=== PATIENT | female | born 1985 | race African-American/Black ===

== ENCOUNTER 2019-07-26 15:05 | Emergency (ER) | payer MEDICAID, OTHER ==
--- NOTE | 2019-07-26 15:09 | EDM.PDOC ---
ED HPI GENERAL MEDICAL PROBLEM - General Stated Complaint: SHORTNESS OF BREATH AND CHEST PAIN Time Seen by Provider: 07/26/19 15:05 Source of Information: Reports: Patient History Limitations: Reports: No Limitations - History of Present Illness INITIAL COMMENTS - FREE TEXT/NARRATIVE: HISTORY AND PHYSICAL: History of present illness: Patient is a 33-year-old female presenting to the emergency room for complaints of chest pain and shortness of breath. Patient states that her symptoms started yesterday morning, increasing in intensity this morning. Patient states that she feels like her "heart is racing". Patient currently has a 10 on a 10 "pounding" generalized headache, with "double vision earlier" today. She informs me that she was also "light-headed earlier". She also has shortness of breath, chest pain that starts at the sternum, rated at a 8/10 that does not radiate, "heart racing" and "thumping on chest". Patient is concerned as her mother has had heart problems in the past including an [place] and had a pacemaker. Patient denies any diagnoses of a heart condition or anxiety. Patient is not on hormone replacement therapy and is not taking any stimulants including over-the- counter or prescribed. Patient states she drinks about 2-3 cups of coffee at night as she works "night shifts". Patient does not smoke. Patient relays no aggravating or alleviating factors for her symptoms. Patient denies any fever, chills, current change in vision, syncope or near syncope. Denies any back pain , or cough. Denies any abdominal pain, nausea, vomiting, diarrhea, constipation or dysuria. Has not noted any blood in urine or stool. Patient has been eating and drinking appropriately. Review of systems: As per history of present illness and below otherwise all systems reviewed and negative. Past medical history: As per history of present illness and as reviewed below otherwise noncontributory. Surgical history: As per history of present illness and as reviewed below otherwise noncontributory. Social history: See social history for further information Family history: As per history of present illness and as reviewed below otherwise noncontributory. Physical exam: General: Patient is a well-nourished and well-developed 33-year-old - [place] female. Alert and orientated. Nontoxic in appearance. HEENT: Atraumatic, normocephalic, pupils equal and reactive bilaterally, negative for conjunctival pallor or scleral icterus, mucous membranes moist, TMs normal bilaterally, throat clear, neck supple, nontender, trachea midline. No drooling or trismus noted. No meningeal signs. No hot potato voice noted. Lungs: Clear to auscultation, breath sounds equal bilaterally, chest nontender. Heart: S1S2, regular rate and rhythm without overt murmur Abdomen: Soft, nondistended, nontender. Negative for masses or hepatosplenomegaly. Negative for costovertebral tenderness. Pelvis: Stable nontender. Skin: Intact, warm, dry. No lesions or rashes noted. Extremities: Atraumatic, moves all extremities per self without difficulty or deficits, negative for cords or calf pain. Neurovascular unremarkable. Neuro: Awake, alert, oriented. Cranial nerves II through XII unremarkable. Cerebellum unremarkable. Motor and sensory unremarkable throughout. Exam nonfocal. Notes: All lab values are within normal limits, patient is slightly anemic but does not require further intervention. X-ray does show a slightly enlarged heart. Due to patient's symptoms and family medical history I did encourage her to follow-up with our jewelry facer. All diagnostics were shared with the patient. She states she feels improved since being here. Currently asymptomatic. She feels well enough to be discharged to home. We reviewed signs and symptoms that would prompt her to return to the emergency room. Supportive care measures were reviewed and discussed. Voices understanding and is agreeable to plan of care. Denies any further questions or concerns at this time. Diagnostics: CBC, CMP, TSH, EKG, chest x-ray Therapeutics: IV fluids Prescription: None Impression: Chest pain, nonspecific Plan: 1. You may start a baby aspirin (Aspirin 81mg) once daily 2. Please call to schedule a follow-up appointment with the jewelry facer, Dr Solorzano (Dr. Mccormick) for further evaluation as we discussed 3. Return to the ED as needed and as discussed. Definitive disposition and diagnosis as appropriate pending reevaluation and review of above. Chest Pain Score (Numeric/FACES): 8 - Related Data Allergies Allergy/AdvReac Type Severity Reaction Status Date / Time No Known Allergies Allergy Verified 07/26/19 15:15 Home Meds: Home Meds . [No Known Home Meds] 07/26/19 [History] ED ROS GENERAL - Review of Systems Review Of Systems: ROS reveals no pertinent complaints other than HPI. ED EXAM, GENERAL - Physical Exam Exam: See Below (See dictation) Course - Vital Signs Last Recorded V/S: Last Vital Signs Temp 97.3 F 07/26/19 15:08 Pulse 82 07/26/19 15:08 Resp 20 07/26/19 15:08 BP 153/93 H 07/26/19 15:08 Pulse Ox 99 07/26/19 15:08 - Orders/Labs/Meds Orders: Active Orders 24 hr Category Date Time Status EKG Documentation Completion [RC] STAT Care 07/26/19 15:16 Active Labs: Laboratory Tests 07/26/19 07/26/19 Range/Units 15:15 15:15 WBC 6.23 (4.0-11.0) K/uL RBC 4.00 L (4.30-5.90) M/uL Hgb 11.4 L (12.0-16.0) g/dL Hct 35.9 L (36.0-46.0) % MCV 89.8 (80.0-98.0) fL MCH 28.5 (27.0-32.0) pg MCHC 31.8 (31.0-37.0) g/dL RDW Std Deviation 50.5 (28.0-62.0) fl RDW Coeff of Lupe 15 (11.0-15.0) % Plt Count 226 (150-400) K/uL MPV 9.90 (7.40-12.00) fL Neut % (Auto) 54.1 (48.0-80.0) % Lymph % (Auto) 40.8 H (16.0-40.0) % [place] % (Auto) 3.7 (0.0-15.0) % Eos % (Auto) 1.1 (0.0-7.0) % Baso % (Auto) 0.3 (0.0-1.5) % Neut # (Auto) 3.4 (1.4-5.7) K/uL Lymph # (Auto) 2.5 H (0.6-2.4) K/uL [place] # (Auto) 0.2 (0.0-0.8) K/uL Eos # (Auto) 0.1 (0.0-0.7) K/uL Baso # (Auto) 0.0 (0.0-0.1) K/uL Nucleated RBC % 0.0 /100WBC Nucleated RBCs # 0 K/uL Sodium 140 (136-145) mmol/L Potassium 3.7 (3.5-5.1) mmol/L Chloride 104 (98-107) mmol/L Carbon Dioxide 28.8 (21.0-32.0) mmol/L BUN 6 L (7.0-18.0) mg/dL Creatinine 0.7 (0.6-1.0) mg/dL Est Cr Clr Drug Dosing 109.08 mL/min Estimated GFR (MDRD) > 60.0 ml/min Glucose 91 (74-106) mg/dL Calcium 9.0 (8.5-10.1) mg/dL Total Bilirubin 0.9 (0.2-1.0) mg/dL AST 11 L (15-37) IU/L ALT 14 (14-63) IU/L Alkaline Phosphatase 60 (46-116) U/L Total Protein 7.8 (6.4-8.2) g/dL Albumin 3.1 L (3.4-5.0) g/dL Globulin 4.7 H (2.6-4.0) g/dL Albumin/Globulin Ratio 0.7 L (0.9-1.6) TSH 3rd Generation 0.83 (0.36-3.74) uIU/mL Departure - Departure Time of Disposition: 16:12 Disposition: Home, Self-Care 01 Clinical Impression: Chest pain Qualifiers: Chest pain type: unspecified Qualified Code(s): R07.9 - Chest pain, unspecified - Discharge Information Instructions: Nonspecific Chest Pain, [id number] Referrals: PCP,Unknown [Primary Care Provider] - Additional Instructions: The following information is given to patients seen in the emergency department who are being discharged to home. This information is to outline your options for follow-up care. We provide all patients seen in our emergency department with a follow-up referral. The need for follow-up, as well as the timing and circumstances, are variable depending upon the specifics of your emergency department visit. If you don't have a primary care physician on staff, we will provide you with a referral. We always advise you to contact your personal physician following an emergency department visit to inform them of the circumstance of the visit and for follow-up with them and/or the need for any referrals to a consulting specialist. The emergency department will also refer you to a specialist when appropriate. This referral assures that you have the opportunity for follow-up care with a specialist. All of these measure are taken in an effort to provide you with optimal care, which includes your follow-up. Under all circumstances we always encourage you to contact your private physician who remains a resource for coordinating your care. When calling for follow-up care, please make the office aware that this follow-up is from your recent emergency room visit. If for any reason you are refused follow-up, please contact the [facility] Emergency Department at and asked to speak to the emergency department charge nurse. [facility] [address] [place] [address] [place] [address] 1. You may start a baby aspirin (Aspirin 81mg) once daily 2. Please call to schedule a follow-up appointment with the jewelry facer, Dr Solorzano (Dr. Mccormick) for further evaluation as we discussed 3. Return to the ED as needed and as discussed. - My Orders Last 24 Hours: My Active Orders 07/26/19 15:16 EKG Documentation Completion [RC] STAT - Assessment/Plan Last 24 Hours: My Active Orders 07/26/19 15:16 EKG Documentation Completion [RC] STAT
[2019-07-26 15:55] LABS: BLOOD UREA NITROGEN,BUN 6 mg/dL (7.0-18.0); CARBON DIOXIDE,CO2 28.8 mmol/L (21.0-32.0); CHLORIDE,CL 104 mmol/L (98-107); GLUCOSE RANDOM 91 mg/dL (74-106); POTASSIUM,K 3.7 mmol/L (3.5-5.1); SODIUM,NA 140 mmol/L (136-145)
--- NOTE | 2019-07-26 16:00 | CR ---
Chest: Two views of the chest were obtained. Comparison: No prior chest x-rays available. Heart is slightly generous in size. Upper mediastinum is normal. Lungs are clear. Bony structures are unremarkable. Impression: 1. Generous size of the heart, echocardiogram could be considered to further evaluate. 2. Nothing acute is otherwise seen on chest x-ray. Diagnostic code #3 MTDD
== END 2019-07-26 16:24 | disposition home or self-care (01) ==
LOC: MW.ED 15:05
DX: R07.9 Chest pain, unspecified (principal)
CPT/HCPCS: 71046; 71046-26; 80053; 84443; 85025; 93005; 99283; 99285-25

== ENCOUNTER 2019-07-27 15:00 | Emergency (ER) | payer MEDICAID, OTHER ==
[2019-07-27] MEDS ORDERED: Sodium Chloride 0.9% 2.5 ML Syringe FLUSH PRN (15:17)
[2019-07-27] MEDS ORDERED: LORazepam 0.5 MG Tab PO ONE (15:17)
[2019-07-27] MEDS ORDERED: Sodium Chloride 0.9% 10 ML Syringe FLUSH PRN (15:17)
--- NOTE | 2019-07-27 15:18 | EDM.PDOC ---
ED HPI GENERAL MEDICAL PROBLEM - General Chief Complaint: Respiratory Problem Stated Complaint: CHEST PAIN Time Seen by Provider: 07/27/19 15:07 Source of Information: Reports: Patient History Limitations: Reports: No Limitations - History of Present Illness INITIAL COMMENTS - FREE TEXT/NARRATIVE: History of present illness: []Patient has had a 4 days of intermittent episodes of left lateral chest pain palpitations, shortness of breath and anxiety. Episodes last approximately 20 minutes in a recurrent all day long. Pending appointment with Dr. Chua on the of this month for an enlarged heart. Patient is a history of pulmonary emboli past and notes that she traveled on a bus from [place] 2 weeks ago. She denies any fevers, chills, nausea, vomiting or diarrhea, leg swelling or leg pain. Review of systems: As per history of present illness and below otherwise all systems reviewed and negative. Past medical history: As per history of present illness and as reviewed below otherwise noncontributory. Surgical history: As per history of present illness and as reviewed below otherwise noncontributory. Social history: No reported history of drug or alcohol abuse. Family history: As per history of present illness and as reviewed below otherwise noncontributory. Physical exam: General: Well developed, well nourished in NAD HEENT: Atraumatic, normocephalic, pupils reactive, negative for conjunctival pallor or scleral icterus, mucous membranes moist, throat clear, neck supple, nontender, trachea midline. Lungs: Clear to auscultation, breath sounds equal bilaterally, chest nontender. Heart: S1S2, regular, negative for clicks, rubs, or JVD. Abdomen: NABS, Soft, nondistended, nontender. Negative for masses or hepatosplenomegaly. Negative for costovertebral tenderness. Pelvis: Stable nontender. Genitourinary: Deferred. Rectal: Deferred. Extremities: Atraumatic, negative for cords or calf pain. Neurovascular unremarkable. Neuro: Awake, alert, oriented. Cranial nerves II through XII unremarkable. Cerebellum unremarkable. Motor and sensory unremarkable throughout. Exam nonfocal. Skin:warm and dry Diagnostics: EKG, CBC, chemistry, lipase, troponin negative, d-dimer positive, CT angiogram negative PE Therapeutics: None ED Course: Stable Impression: Left sided chest pain and palpitations Prescriptions: None Plan: Take baby aspirin daily , follow up with your primary care physician, return to ER if symptoms worsen or change. Definitive disposition and diagnosis as appropriate pending reevaluation and review of above. bilat rib Pain Score (Numeric/FACES): 3 - Related Data Allergies Allergy/AdvReac Type Severity Reaction Status Date / Time No Known Allergies Allergy Verified 07/27/19 15:08 Home Meds: Home Meds . [No Known Home Meds] 07/26/19 [History] Past Medical History - Past Health History Medical/Surgical History: Denies Medical/Surgical History Respiratory History: Reports: Asthma [employer] History: Reports: Social & Family History - Family History Family Medical History: Noncontributory - Tobacco Use Smoking Status *Q: Never Smoker - Recreational Drug Use Recreational Drug Use: No ED ROS GENERAL - Review of Systems Review Of Systems: See Below ED EXAM, GENERAL - Physical Exam Exam: See Below Course - Vital Signs Last Recorded V/S: Last Vital Signs Temp 97.8 F 07/27/19 15:06 Pulse 84 07/27/19 16:54 Resp 16 07/27/19 16:54 BP 145/88 H 07/27/19 16:54 Pulse Ox 96 07/27/19 16:54 - Orders/Labs/Meds Orders: Active Orders 24 hr Category Date Time Status Sodium Chloride 0.9% [Saline Flush] Med 07/27/19 15:17 Active 10 ml FLUSH ASDIRECTED PRN Sodium Chloride 0.9% [Saline Flush] Med 07/27/19 15:17 Active 2.5 ml FLUSH ASDIRECTED PRN Saline Lock Insert [OM.PC] Stat Oth 07/27/19 15:17 Ordered Medication Orders Sodium Chloride (Saline Flush) 10 ml FLUSH ASDIRECTED PRN PRN Reason: Keep Vein Open Sodium Chloride (Saline Flush) 2.5 ml FLUSH ASDIRECTED PRN PRN Reason: Keep Vein Open Labs: Laboratory Tests 07/27/19 07/27/19 07/27/19 Range/Units 15:15 15:30 15:30 WBC 6.88 (4.0-11.0) K/uL RBC 3.96 L (4.30-5.90) M/uL Hgb 11.3 L (12.0-16.0) g/dL Hct 35.1 L (36.0-46.0) % MCV 88.6 (80.0-98.0) fL MCH 28.5 (27.0-32.0) pg MCHC 32.2 (31.0-37.0) g/dL RDW Std Deviation 48.9 (28.0-62.0) fl RDW Coeff of Lupe 15 (11.0-15.0) % Plt Count 228 (150-400) K/uL MPV 10.10 (7.40-12.00) fL Neut % (Auto) 60.0 (48.0-80.0) % Lymph % (Auto) 35.6 (16.0-40.0) % [place] % (Auto) 2.9 (0.0-15.0) % Eos % (Auto) 1.2 (0.0-7.0) % Baso % (Auto) 0.3 (0.0-1.5) % Neut # (Auto) 4.1 (1.4-5.7) K/uL Lymph # (Auto) 2.5 H (0.6-2.4) K/uL [place] # (Auto) 0.2 (0.0-0.8) K/uL Eos # (Auto) 0.1 (0.0-0.7) K/uL Baso # (Auto) 0.0 (0.0-0.1) K/uL Nucleated RBC % 0.0 /100WBC Nucleated RBCs # 0 K/uL D-Dimer, Quantitative 1.03 H (0.0-0.50) mg/L FEU Sodium (136-145) mmol/L Potassium (3.5-5.1) mmol/L Chloride (98-107) mmol/L Carbon Dioxide (21.0-32.0) mmol/L BUN (7.0-18.0) mg/dL Creatinine (0.6-1.0) mg/dL Est Cr Clr Drug Dosing mL/min Estimated GFR (MDRD) ml/min Glucose (74-106) mg/dL Calcium (8.5-10.1) mg/dL Total Bilirubin (0.2-1.0) mg/dL AST (15-37) IU/L ALT (14-63) IU/L Alkaline Phosphatase (46-116) U/L Troponin I (0.000-0.056) ng/mL B-Natriuretic Peptide (<100) PG/ML Total Protein (6.4-8.2) g/dL Albumin (3.4-5.0) g/dL Globulin (2.6-4.0) g/dL Albumin/Globulin Ratio (0.9-1.6) Lipase 76 (73-393) U/L 07/27/19 07/27/19 Range/Units 15:30 15:30 WBC (4.0-11.0) K/uL RBC (4.30-5.90) M/uL Hgb (12.0-16.0) g/dL Hct (36.0-46.0) % MCV (80.0-98.0) fL MCH (27.0-32.0) pg MCHC (31.0-37.0) g/dL RDW Std Deviation (28.0-62.0) fl RDW Coeff of Lupe (11.0-15.0) % Plt Count (150-400) K/uL MPV (7.40-12.00) fL Neut % (Auto) (48.0-80.0) % Lymph % (Auto) (16.0-40.0) % [place] % (Auto) (0.0-15.0) % Eos % (Auto) (0.0-7.0) % Baso % (Auto) (0.0-1.5) % Neut # (Auto) (1.4-5.7) K/uL Lymph # (Auto) (0.6-2.4) K/uL [place] # (Auto) (0.0-0.8) K/uL Eos # (Auto) (0.0-0.7) K/uL Baso # (Auto) (0.0-0.1) K/uL Nucleated RBC % /100WBC Nucleated RBCs # K/uL D-Dimer, Quantitative (0.0-0.50) mg/L FEU Sodium 140 (136-145) mmol/L Potassium 3.6 (3.5-5.1) mmol/L Chloride 104 (98-107) mmol/L Carbon Dioxide 26.7 (21.0-32.0) mmol/L BUN 8 (7.0-18.0) mg/dL Creatinine 0.8 (0.6-1.0) mg/dL Est Cr Clr Drug Dosing 99.01 mL/min Estimated GFR (MDRD) > 60.0 ml/min Glucose 94 (74-106) mg/dL Calcium 9.1 (8.5-10.1) mg/dL Total Bilirubin 0.8 (0.2-1.0) mg/dL AST 11 L (15-37) IU/L ALT 12 L (14-63) IU/L Alkaline Phosphatase 61 (46-116) U/L Troponin I < 0.050 (0.000-0.056) ng/mL B-Natriuretic Peptide 12 (<100) PG/ML Total Protein 8.2 (6.4-8.2) g/dL Albumin 3.4 (3.4-5.0) g/dL Globulin 4.8 H (2.6-4.0) g/dL Albumin/Globulin Ratio 0.7 L (0.9-1.6) Lipase (73-393) U/L Meds: Medications Generic Name Dose Route Start Last Admin Trade Name Freq PRN Reason Stop Dose Admin Sodium Chloride 10 ml 07/27/19 15:17 Saline Flush FLUSH ASDIRECTED PRN Keep Vein Open Sodium Chloride 2.5 ml 07/27/19 15:17 Saline Flush FLUSH ASDIRECTED PRN Keep Vein Open Discontinued Medications Generic Name Dose Route Start Last Admin Trade Name Freq PRN Reason Stop Dose Admin Iopamidol 50 ml 07/27/19 17:26 07/27/19 17:26 Isovue Multipack-370 (76%) IVPUSH 07/27/19 17:27 50 ml ONETIME ONE Administration Lorazepam 0.5 mg 07/27/19 15:17 07/27/19 15:23 Ativan PO 07/27/19 15:18 Not Given ONETIME ONE Lorazepam 0.5 mg 07/27/19 15:23 07/27/19 15:34 Ativan IVPUSH 07/27/19 15:24 0.5 mg ONETIME ONE Administration Departure - Departure Time of Disposition: 17:56 Disposition: Home, Self-Care 01 Condition: Good Clinical Impression: Palpitations Chest pain Qualifiers: Chest pain type: unspecified Qualified Code(s): R07.9 - Chest pain, unspecified Referrals: PCP,Unknown [Primary Care Provider] - Forms: ED Department Discharge Additional Instructions: The following information is given to patients seen in the emergency department who are being discharged to home. This information is to outline your options for follow-up care. We provide all patients seen in our emergency department with a follow-up referral. The need for follow-up, as well as the timing and circumstances, are variable depending upon the specifics of your emergency department visit. If you don't have a primary care physician on staff, we will provide you with a referral. We always advise you to contact your personal physician following an emergency department visit to inform them of the circumstance of the visit and for follow-up with them and/or the need for any referrals to a consulting specialist. The emergency department will also refer you to a specialist when appropriate. This referral assures that you have the opportunity for follow-up care with a specialist. All of these measure are taken in an effort to provide you with optimal care, which includes your follow-up. Under all circumstances we always encourage you to contact your private physician who remains a resource for coordinating your care. When calling for follow-up care, please make the office aware that this follow-up is from your recent emergency room visit. If for any reason you are refused follow-up, please contact the [facility] Emergency Department at and asked to speak to the emergency department charge nurse. Take baby aspirin daily, follow up with your primary care physician, return to ER if symptoms worsen or change. [facility] [address] [place] [phone] - My Orders Last 24 Hours: My Active Orders 07/27/19 15:17 Sodium Chloride 0.9% [Saline Flush] 10 ml FLUSH ASDIRECTED PRN Sodium Chloride 0.9% [Saline Flush] 2.5 ml FLUSH ASDIRECTED PRN Saline Lock Insert [OM.PC] Stat - Assessment/Plan Last 24 Hours: My Active Orders 07/27/19 15:17 Sodium Chloride 0.9% [Saline Flush] 10 ml FLUSH ASDIRECTED PRN Sodium Chloride 0.9% [Saline Flush] 2.5 ml FLUSH ASDIRECTED PRN Saline Lock Insert [OM.PC] Stat
[2019-07-27] MEDS ORDERED: LORazepam 2 MG/ML SDV IVPUSH ONE (15:23)
[2019-07-27 16:19] LABS: BLOOD UREA NITROGEN,BUN 8 mg/dL (7.0-18.0); CARBON DIOXIDE,CO2 26.7 mmol/L (21.0-32.0); CHLORIDE,CL 104 mmol/L (98-107); GLUCOSE RANDOM 94 mg/dL (74-106); POTASSIUM,K 3.6 mmol/L (3.5-5.1); SODIUM,NA 140 mmol/L (136-145)
[2019-07-27] MEDS ORDERED: Iopamidol 755 MG/ML 500 ML Multipack Bottle IVPUSH ONE (17:26)
--- NOTE | 2019-07-27 17:48 | CT ---
Indication: Dyspnea. Technique: Multiple contiguous axial images were obtained from the thoracic inlet through the upper abdomen after the intravenous administration of 50 milliliters Isovue. Please note that all CT scans at this facility use dose modulation, iterative reconstruction, and/or weight-based dosing when appropriate to reduce radiation dose to as low as reasonably achievable. Comparison: None Findings: This examination is tailored for the evaluation of the pulmonary arteries. The aorta is normal in caliber. There is no evidence of aortic dissection. No pulmonary embolism is identified. No pericardial effusion is identified. The visualized portions of the liver, spleen, pancreas, adrenals, and kidneys are normal. Degenerative changes of the spine are identified. No lytic or blastic lesions are identified. The lungs are clear. No infiltrate or pneumothorax is identified. Trace bilateral pleural effusions are identified. Impression: Trace bilateral pleural effusions. No pulmonary embolism or aortic dissection. Please note that all CT scans at this facility use dose modulation, iterative reconstruction, and/or weight-based dosing when appropriate to reduce radiation dose to as low as reasonably achievable. Dictated by Nancy Ramirez MD @ Jul 27 2019 5:44PM Signed by Dr. Nancy Ramirez @ Jul 27 2019 5:46PM
== END 2019-07-27 18:05 | disposition home or self-care (01) ==
LOC: MW.ED 15:00
DX: R00.2 Palpitations (principal); R07.9 Chest pain, unspecified
CPT/HCPCS: 36415; 71275; 80053; 83690; 83880; 84484; 85025; 85379; 93005; 96374; 99285; J2060; Q9967; 99284